=== PATIENT | male | born 1965 | race African-American/Black ===

== ENCOUNTER 2018-05-07 11:04 | Observation (INO) | payer SELFPAY ==
[2018-05-07] MEDS ORDERED: Mag-Al 1200 mg/1200 mg/30 ML UDCUP ONE (11:54)
[2018-05-07] MEDS ORDERED: Lidocaine Viscous Sol 2% 15 ml UD Cup ONE (11:54)
[2018-05-07] MEDS ORDERED: Aspirin Chewable 81 MG TAB ONE (11:54)
[2018-05-07] MEDS ORDERED: hydrALAZINE 20 MG/ML VIAL ONE (11:54)
[2018-05-07] MEDS ORDERED: Morphine 4 MG/ML VIAL ONE (13:35)
[2018-05-07 14:56] LABS: Troponin I 0.011 ng/mL (< 0.028)
[2018-05-07 16:43] VITALS: BMI 33.0
[2018-05-07] MEDS ORDERED: Dextrose 5% in Water 1,000 ML IV PRN (17:37)
[2018-05-07] MEDS ORDERED: Dextrose 50% Abboject 50 ML SYRINGE SLOW IVP PRN (17:37)
[2018-05-07] MEDS ORDERED: Nitroglycerin 0.4 MG TAB (25 Tab Bottle) PO PRN (17:37)
[2018-05-07] MEDS ORDERED: Senokot S 8.6-50 MG TAB PO PRN (17:37)
[2018-05-07] MEDS ORDERED: HumaLOG 300 UNITS/3 ML VIAL SC PRN (17:37)
[2018-05-07] MEDS ORDERED: Ondansetron ODT 4 MG TAB PO PRN (17:37)
[2018-05-07] MEDS ORDERED: Bisacodyl 10 MG SUPP PR PRN (17:37)
[2018-05-07] MEDS ORDERED: HYDROcodone/Acetaminophen 5/325 mg Tablet PO PRN (17:37)
[2018-05-07] MEDS ORDERED: Acetaminophen 325 MG TAB PO PRN (17:37)
[2018-05-07] MEDS ORDERED: Enoxaparin Sodium 40 MG/0.4 ML SYRINGE SC SCH (17:45)
[2018-05-07] MEDS ORDERED: Nicotine 21 MG PATCH TD SCH (18:00)
[2018-05-07 18:42] LABS: Troponin I Less than 0.010 ng/mL (< 0.028)
--- NOTE | 2018-05-07 19:05 | HP ---
CHIEF COMPLAINT: Midsternal chest pain since last night. HISTORY OF PRESENT ILLNESS: The patient is a 52-year-old male with past medical history significant for hypertension and diabetes bed. The patient has been noncompliant on medication, who presents on transfer from [facility] for further evaluation of acute onset of chest pain. The patient reported that he developed chest pain around 8 o'clock yesterday about 3 hours after a meal of tacos. Chest pain is said to be lower midsternal in location and is described as burning with intensity of 8/10 at its maximum severity. There was no associated radiation, diaphoresis, or shortness of breath. The patient, however, admitted to some nausea. He admitted to having some heartburn symptoms previously, but reported that this pain was different. The pain continued until the patient was treated in the emergency room with morphine, GI cocktail, hydralazine as well as nitroglycerin with resolution of symptoms. The patient is currently chest pain free. The patient is supposed to be on metformin but has not taken that for several weeks, the same applies to lisinopril. He also reported smoking about one pack a day for about 25 years. Also, the patient's father had coronary artery disease for which he had bypass surgery. On presentation to the ER, his blood pressure was noted to be 188/104, hence the patient was treated with IV hydralazine with improvement in blood pressure. The patient also reported headache and left ankle pain and swelling. Further evaluation with CT of the brain and left ankle x-ray were nondiagnostic. Initial troponin also was normal, hence the patient was admitted for further evaluation and risk stratification. PAST MEDICAL HISTORY: 1. Hypertension. 2. Diabetes. 3. Tobacco abuse disorder. 4. Recreational drug use. PAST SURGICAL HISTORY: None. FAMILY HISTORY: Significant for diabetes in the mother and coronary artery disease in father. Both parents had hypertension and both at this time. SOCIAL HISTORY: The patient lives alone. He admitted to alcohol, tobacco, and recreational drug use. He said he smokes a pack a day for about 25 years. Drinks about six beers on weekends. ALLERGIES: NO KNOWN DRUG ALLERGIES REPORTED. HOME MEDICATIONS: 1. Lisinopril 20 mg daily. 2. Metformin 500 mg b.i.d. Of note, however, the patient has not been compliant. REVIEW OF SYSTEMS: A 12-point review of system performed was negative other than pertinent positives and negatives included in the history of present illness. PHYSICAL EXAMINATION: VITAL SIGNS: On presentation to the emergency room, the patient had the following vitals; BP 188/104, pulse 57, respiratory rate 20, temperature 98.4, and SpO2 of 99 on room air. Current vitals are at 1627 hours are as follows; blood pressure 149/86, pulse 54, respiratory rate 16, temperature 98.0, and SpO2 of 98% on room air. GENERAL: Well-built male, in no obvious distress. Afebrile, anicteric, acyanotic. HEENT: Normocephalic and atraumatic. Pupils are equal and reacting to light. Oral mucosa is moist. NECK: Supple, nontender, and nondistended with full range of motion. RESPIRATORY: Good air entry bilaterally with no obvious crackle, rhonchi or use of accessory muscles. CARDIOVASCULAR: Regular rhythm and rate with normal heart sounds one and two. GI: Abdomen is full, soft, nontender, nondistended with normal bowel sounds. EXTREMITIES: Mild left ankle swelling and tenderness noted. Otherwise, all extremities are grossly normal and atraumatic with no edema erythema or cyanosis. SKIN: No obvious rash noted. NEUROLOGIC: Conscious and alert, oriented x3 with appropriate mental status. Cranial nerves 2 through 12 are intact. The patient moves all extremities. PSYCHIATRIC: Normal mood. The patient is alert with appropriate mental status and insight. DIAGNOSTIC DATA: CBC showed WBC count of 7.4, hemoglobin of 14.5, MCV of 99.5, and platelet of 176. D-dimer is less than 0.27. CMP showed sodium 138, potassium 4.2, chloride 101, CO2 of 25, BUN 10, creatinine 1.41, glucose 125, calcium 9.8, total bilirubin 1.2, AST 20, ALT 25, alkaline phosphatase 73, total protein 7.0, albumin 4.2. Two sets of troponin 3 hours apart were unremarkable at 0.011. Urinalysis was unremarkable. Urine drug screen, however, was positive for opiates and cocaine. EKG showed sinus bradycardia with rate of 50. There is no obvious ST-segment or T-wave abnormality. Chest x-ray showed clear lungs with no acute pathology. Left ankle x-ray showed degenerative changes without fracture or dislocation. CT scan of the brain showed no acute intracranial abnormality; however, air fluid level is noted in the left maxillary suggestive of acute sinusitis. ASSESSMENT: Atypical chest pain, the etiology is unclear. The patient reported that the chest pain was burning and this was associated with food intake. This seems most likely to be GI related; however, the patient with diabetes and hypertension as well as noncompliance and chronic tobacco abuse, he is at increased risk of coronary artery disease. Uncontrolled hypertension: This was likely due to noncompliance with medication. Uncontrolled type 2 diabetes mellitus: The patient again is noncompliant on metformin. Tobacco abuse disorder. Recreational drug use. Urine drug screen was positive for cocaine and opiates. Possible gastroesophageal reflux disease. PLAN: We will rule out acute myocardial infarction with serial troponin. We will follow up with nuclear stress test if acute UT is ruled out. We will also get a lipid panel in the morning. We will start the patient on sliding scale insulin while holding metformin since cardiac catheterization is a possibility. We will start Pepcid b.i.d. for possible gastroesophageal reflux disease. Analgesic as needed would be provided. Tobacco cessation, education, and counseling were provided. We will also start the patient on nicotine replacement. Diabetic diet will also be started. We will, however, keep the patient n.p.o. from midnight to facilitate stress test in the morning. DVT prophylaxis with Lovenox. We will also check repeat BMP in the morning due to elevated creatinine. This may, however, be baseline for this patient, who is very muscular. Ethics: Full code. Sister is the surrogate decision maker. Job ID: [id number]
[2018-05-07] MEDS: Famotidine 20 MG TAB PO SCH (19:55)
[2018-05-08 05:57] LABS: Anion Gap 9 mmol/L (10-20); BUN (Urea Nitrogen) 11 mg/dL (8.4-25.7); Calc. Creatinine Clearance 118 mL/min (70-130); Calcium 8.8 mg/dL (7.8-10.44); Carbon Dioxide 28 mmol/L (22-29); Chloride 104 mmol/L (98-107); Estimated GFR-MDRD 83; Glucose 95 mg/dL (70-105); Potassium 4.4 mmol/L (3.5-5.1); Sodium 137 mmol/L (136-145)
[2018-05-08 06:49] LABS: #Basophils 0.1 thou/uL (0.0-0.2); #Eosinphils 0.1 thou/uL (0.0-0.7); #Lymphocytes 1.7 thou/uL (1.20-3.40); #Monocytes 0.5 thou/uL (0.11-0.59); #Neutrophils 1.9 thou/uL (1.40-6.50); %Basophils 1.2 % (0.0-1.0); %Eosinophils 2.3 % (0.0-10.0); %Lymphocytes 39.4 % (21.0-51.0); %Monocytes 11.5 % (0.0-10.0); %Neutrophils 45.6 % (42.0-75.0); Hemoglobin 13.8 g/dL (14.0-18.0); Mean Corpuscular HGB CONC 33.1 g/dL (32.0-36.0); Mean Corpuscular Hemoglobin 34.7 pg (27.0-31.0); Mean Platelet Volume 10.3 fL (7.4-10.4); Platelet Count 141 thou/uL (130-400); RBC Distribution Width 12.7 % (11.5-14.5); Red Blood Cell (RBC) Count 3.99 mill/uL (4.70-6.10); White Blood Cell (WBC) Count 4.2 thou/uL (4.8-10.8)
[2018-05-08 06:50] LABS: MDiff Complete? YES; Macrocytosis SLIGHT = 6-15 cells (100X) (0-5/hpf)
[2018-05-08 07:40] LABS: Cardiac Risk 3.6 (Less than 4.5)
[2018-05-08] MEDS ORDERED: Aspirin 325 mg Enteric Coated Tablet PO SCH (09:00)
[2018-05-08] MEDS ORDERED: Enoxaparin Sodium 40 MG/0.4 ML SYRINGE SC SCH (09:00)
[2018-05-08] MEDS ORDERED: Lisinopril 20 MG TAB PO SCH (09:00)
[2018-05-08] MEDS: Famotidine 20 MG TAB PO SCH (11:16)
--- NOTE | 2018-05-08 15:33 | NM ---
RADIONUCLIDE STRESS AND REST MYOCARDIAL PERFUSION SCAN WITH CT ATTENUATION CORRECTION AND SPECT IMAGI NG WITH LEFT VENTRICULAR WALL MOTION EVALUATION AND EJECTION FRACTION: HISTORY: Chest pain. FINDINGS: Edmund protocol. Total test time 10:00. Maximum heart rate 157 BPM. There is homogeneous uptake of radiotracer throughout the left ventricular myocardium. No focal perfu clyde defect or reversibility. Some diaphragmatic attenuation. QGS analysis of gated SPECT images shows no focal wall motion abnormalities. TID equals 1.0. LHR equa ls 33%. Left ventricular ejection fraction is calculated at 54%. IMPRESSION: 1. Normal myocardial perfusion scan, showing no evidence of ischemia. 2. Normal LVEF. POS: [facility]
[2018-05-08 15:54] VITALS: BP 160/89; TEMP 98.2
--- NOTE | 2018-05-08 18:11 | DIS ---
DATE OF ADMISSION: 05/07/2018 DATE OF DISCHARGE: 05/08/2018 PRIMARY CARE PROVIDER: [facility]. DISCHARGE DIAGNOSIS: Chest pain, most likely secondary to musculoskeletal causes. CONDITION OF PATIENT ON THE DAY OF DISCHARGE: Stable. I assessed Mr. Felix on the day of discharge. He denies any chest pain or shortness of breath. Vital signs are stable. S1 and S2 are heard, regular. Lungs are clear to auscultation bilaterally. DISCHARGE MEDICATIONS: 1. Lisinopril 20 mg daily. 2. Metformin 500 mg 2 times a day. 3. Nicotine 21 mg patch daily. HOSPITAL COURSE: Mr. Felix is a pleasant 52-year-old gentleman, who was admitted to [facility] on May 07 2018, for chest pain. Please refer to Dr. Mendoza's history and physical note dated May 07, 2018, for further details. He had a nuclear stress test, which was normal, showing no evidence of ischemia. Left ventricular ejection fraction was 54%. He also had a normal D-dimer of 0.37. His chest pain resolved during this hospitalization, and he is being discharged home in a stable condition. On May 08, he has white count of 4200, hemoglobin 13.8, platelet count 141,000, normal electrolytes and normal creatinine. Fasting lipid profile showed triglycerides 72, cholesterol 140, LDL cholesterol 87, and HDL cholesterol 39. Many thanks for allowing me to participate in your patient's care. Please feel free to contact me with any questions or concerns. DISCHARGE DESTINATION: Home. Job ID: [id number]
--- NOTE | 2018-05-10 13:33 | STRESS ---
Acquisition Time: 2018-05-08 12:58:45 Total Exercise Time: 00:10:00 Test Indications: CHEST PAIN Medications: Protocol: AYANA Max HR: 157 BPM 94% of Pred: 166 BPM Max BP: 170/094 mmHG Max Work Load: 13.4 METS RESTING ECG: SINUS BRADYCARDIA AT 49 BPM SYMPTOMS: DYSPNEA ON EXERTION NORMAL BLOOD PRESSURE RESPONSE ECTOPY: NONE ECG STRESS: NO SIGNIFICANT CHANGES INTERPRETATION: NEGATIVE ECG/AWAIT NUCLEAR IMAGES FOR DEFINITIVE DIAGNOSIS Confirmed by MAIN SIU ([id number]), city editor ENRIQUE CHILDRESS ([id number]) on 05/10/2018 1:32:36 PM Referred By: Aamir WELSH OBI Confirmed By:MAIN SIU
--- NOTE | 2018-05-15 22:15 | EKG ---
Test Reason : Blood Pressure : / mmHG Vent. Rate : 050 BPM Atrial Rate : 050 BPM P-R Int : 162 ms QRS Dur : 088 ms QT Int : 462 ms P-R-T Axes : 059 -37 037 degrees QTc Int : 421 ms Sinus bradycardia Left axis deviation Abnormal ECG Confirmed by EDWIN WELSH, CHAYITO ([id number]), supervising film or videotape editor JAMAL BRADLEY ([id number]) on 05/15/2018 10:15:00 PM Referred By: Confirmed By:CHAYITO PINEDA MD
== END 2018-05-08 18:13 | disposition home or self-care (01) ==
LOC: ERS 11:04 → ERHOLD 12:41 → 2SW 16:39
PROVIDERS: ADMIT Internal Medicine Nephrology; ATTEND Internal Medicine Nephrology
DX: R07.9 Chest pain, unspecified (principal); I10 Essential (primary) hypertension; E11.9 Type 2 diabetes mellitus without complications; F17.210 Nicotine dependence, cigarettes, uncomplicated; Z79.84 Long term (current) use of oral hypoglycemic drugs; Z79.899 Other long term (current) drug therapy; Z91.14 Patient's other noncompliance with medication regimen
CPT/HCPCS: 36415; 36416; 78452; 80048; 80061; 85025; 85379; 93005; 93017; 96372; A9500; G0378; J0360; J1650; J2270

== ENCOUNTER 2019-04-26 12:05 | Emergency (ER) | payer SELFPAY ==
[2019-04-26] MEDS ORDERED: Ketorolac Tromethamine 60 MG/2 ML VIAL ONE (13:05)
== END 2019-04-26 13:15 | disposition home or self-care (01) ==
LOC: ERS 12:05
DX: M54.5 Low back pain (principal); E11.9 Type 2 diabetes mellitus without complications; I10 Essential (primary) hypertension; F17.210 Nicotine dependence, cigarettes, uncomplicated; Z79.84 Long term (current) use of oral hypoglycemic drugs; Z79.899 Other long term (current) drug therapy
CPT/HCPCS: 96372; 99283; J1885

== ENCOUNTER 2019-06-14 13:50 | Emergency (ER) | payer SELFPAY | END 2019-06-14 14:24 | disposition home or self-care (01) | LOC: ERS 13:50 | DX: R19.7 Diarrhea, unspecified (principal); E11.9 Type 2 diabetes mellitus without complications; I10 Essential (primary) hypertension; F17.210 Nicotine dependence, cigarettes, uncomplicated; Z79.84 Long term (current) use of oral hypoglycemic drugs; Z79.899 Other long term (current) drug therapy | CPT/HCPCS: 99283 ==

== ENCOUNTER 2019-07-02 12:59 | Emergency (ER) | payer SELFPAY ==
[2019-07-02] MEDS ORDERED: Ketorolac Tromethamine 30 MG/ML VIAL ONE (13:58)
== END 2019-07-02 14:15 | disposition home or self-care (01) ==
LOC: ERS 12:59
DX: S39.012A Strain of muscle, fascia and tendon of lower back, initial encounter (principal); E11.9 Type 2 diabetes mellitus without complications; I10 Essential (primary) hypertension; F17.210 Nicotine dependence, cigarettes, uncomplicated; Z79.899 Other long term (current) drug therapy; Z79.84 Long term (current) use of oral hypoglycemic drugs; X50.0XXA Overexertion from strenuous movement or load, initial encounter
CPT/HCPCS: 96372; 99283; J1885

== ENCOUNTER 2019-07-12 10:30 | Emergency (ER) | payer OTHER, SELFPAY ==
[2019-07-12 17:21] LABS: SARS-CoV-2 MS2 Positive; SARS-CoV-2 N Gene Negative; SARS-CoV-2 S Gene Negative; SARS-CoV-2 orf1ab Negative
== END 2019-07-12 15:34 | disposition home or self-care (01) ==
LOC: ERS 10:30
DX: B34.9 Viral infection, unspecified (principal); E11.9 Type 2 diabetes mellitus without complications; I10 Essential (primary) hypertension; F17.210 Nicotine dependence, cigarettes, uncomplicated; Z79.84 Long term (current) use of oral hypoglycemic drugs; Z79.899 Other long term (current) drug therapy
CPT/HCPCS: 87081; 87430; 87635; 99283; U0003

== ENCOUNTER 2019-07-25 10:38 | Emergency (ER) | payer SELFPAY ==
[2019-07-25] MEDS ORDERED: Proparacaine 0.5% Opth 15 ML BOT ONE (12:21)
[2019-07-25 13:32] LABS: Anion Gap 12 mmol/L (10-20); BUN (Urea Nitrogen) 20 mg/dL (8.4-25.7); Calc. Creatinine Clearance 0 mL/min (70-130); Calcium 8.9 mg/dL (7.8-10.44); Carbon Dioxide 24 mmol/L (22-29); Chloride 105 mmol/L (98-107); Estimated GFR-MDRD 73; Glucose 115 mg/dL (70-105); Potassium 4.1 mmol/L (3.5-5.1); Sodium 137 mmol/L (136-145)
== END 2019-07-25 13:55 | disposition home or self-care (01) ==
LOC: ERS 10:38
DX: H10.9 Unspecified conjunctivitis (principal); E11.9 Type 2 diabetes mellitus without complications; I10 Essential (primary) hypertension; F17.210 Nicotine dependence, cigarettes, uncomplicated; Z79.899 Other long term (current) drug therapy
CPT/HCPCS: 36415; 80048; 99284

== ENCOUNTER 2019-08-18 10:27 | Emergency (ER) | payer SELFPAY ==
[2019-08-18] MEDS ORDERED: Ketorolac Tromethamine 30 MG/ML VIAL ONE (11:39)
--- NOTE | 2019-08-18 13:40 | RAD ---
EXAM: LEFT SHOULDER THREE VIEWS: 08/18/19 HISTORY: Left shoulder pain. No chest pain. FINDINGS: AC and glenohumeral joint arthrosis. No acute fracture or dislocation. IMPRESSION: Mild osteoarthrosis and degenerative change without acute fracture or dislocation. POS: [facility]
== END 2019-08-18 11:45 | disposition home or self-care (01) ==
LOC: ERS 10:27
DX: M25.512 Pain in left shoulder (principal); E11.9 Type 2 diabetes mellitus without complications; I10 Essential (primary) hypertension; F17.210 Nicotine dependence, cigarettes, uncomplicated; Z79.899 Other long term (current) drug therapy
CPT/HCPCS: 96372; J1885

== ENCOUNTER 2019-09-12 10:27 | Emergency (ER) | payer OTHER, SELFPAY ==
[2019-09-12] MEDS ORDERED: Meclizine HCl 25 MG TAB ONE (11:10)
[2019-09-12] MEDS ORDERED: diphenhydrAMINE 50 MG/ML VIAL ONE (11:10)
[2019-09-12] MEDS ORDERED: Metoclopramide HCl 10 MG/2 ML VIAL ONE (11:10)
[2019-09-12] MEDS ORDERED: Dexamethasone 10 MG/ML VIAL ONE (11:10)
--- NOTE | 2019-09-12 11:16 | CT ---
CT HEAD WITHOUT IV CONTRAST COMPARISON: 05/07/2018 HISTORY: Altered mental status and nausea TECHNIQUE: Axial CT imaging at 5 mm intervals from vertex through skull base without contrast FINDINGS: There is no evidence of an acute infarction, hemorrhage, mass effect, or midline shift. The ventricul ar system is normal in size, shape, and position. There is opacification of a single posterior right ethmoidal air cell. Remaining visualized paranasal sinuses as well as mastoid air cells are clear. Osseous structures appear intact. CT head is stable compared to prior exam. IMPRESSION: 1. No acute intracranial abnormality demonstrated.
[2019-09-12 11:53] LABS: #Eosinphils 0.1 thou/uL (0.0-0.7); #Lymphocytes 1.3 thou/uL (1.20-3.40); #Monocytes 0.5 thou/uL (0.11-0.59); #Neutrophils 2.9 thou/uL (1.40-6.50); %Basophils 0.7 % (0.0-1.0); %Lymphocytes 27.5 % (21.0-51.0); %Monocytes 10.4 % (0.0-10.0); %Neutrophils 59.3 % (42.0-75.0); Hemoglobin 15.2 g/dL (14.0-18.0); Mean Corpuscular HGB CONC 34.2 g/dL (32.0-36.0); Mean Corpuscular Hemoglobin 34.3 pg (27.0-31.0); Mean Platelet Volume 10.7 fL (7.4-10.4); Platelet Count 145 thou/uL (130-400); RBC Distribution Width 12.6 % (11.5-14.5); Red Blood Cell (RBC) Count 4.43 mill/uL (4.70-6.10); White Blood Cell (WBC) Count 4.9 thou/uL (4.8-10.8)
[2019-09-12 12:05] LABS: ALT (SGPT) 33 U/L (8-55); AST (SGOT) 17 U/L (5-34); Albumin 3.5 g/dL (3.5-5.0); Alkaline Phosphatase 58 U/L (40-110); Anion Gap 9 mmol/L (10-20); BUN (Urea Nitrogen) 17 mg/dL (8.4-25.7); Bilirubin, Total 0.4 mg/dL (0.2-1.2); CK (CPK) 155 U/L (30-200); Calc. Creatinine Clearance 0 mL/min (70-130); Calcium 8.5 mg/dL (7.8-10.44); Carbon Dioxide 27 mmol/L (22-29); Chloride 106 mmol/L (98-107); Estimated GFR-MDRD 71; Globulin 2.2 g/dL (2.4-3.5); Glucose 161 mg/dL (70-105); Potassium 4.1 mmol/L (3.5-5.1); Protein, Total 5.7 g/dL (6.0-8.3); Sodium 138 mmol/L (136-145)
== END 2019-09-12 12:41 | disposition home or self-care (01) ==
LOC: ERS 10:27
DX: R42 Dizziness and giddiness (principal); E11.9 Type 2 diabetes mellitus without complications; I10 Essential (primary) hypertension; F17.210 Nicotine dependence, cigarettes, uncomplicated; Z79.899 Other long term (current) drug therapy
CPT/HCPCS: 70450; 80053; 82550; 85025; 93005; 94760; 96365; 96375; J1100; J1200; J2765

== ENCOUNTER 2020-01-17 17:48 | Emergency (ER) | payer BC | END 2020-01-17 21:18 | disposition left against medical advice (07) | LOC: ERS 17:48 | DX: Z53.21 Procedure and treatment not carried out due to patient leaving prior to being seen by health care provider (principal) ==

== ENCOUNTER 2020-10-16 09:55 | Emergency (ER) | payer OTHER, SELFPAY ==
[2020-10-16 11:00] LABS: Bilirubin Negative (Negative); Blood, Urine Negative (Negative); Clarity Clear (Clear); Glucose, Urine (Dipstick) Greater than 1000 mg/dL (Negative); Ketone, Urine Negative (Negative); Leukocyte Negative Leu/uL (Negative); Nitrite Negative (Negative); Protein, Urine (Dipstick) Negative (Neg-Trace); Specific Gravity, Urine 1.027 (1.002-1.036); Urobilinogen Normal mg/dL (Less than 2)
[2020-10-16 11:55] LABS: #Eosinphils 0.1 thou/uL (0.0-0.7); #Lymphocytes 1.5 thou/uL (1.20-3.40); #Monocytes 0.7 thou/uL (0.11-0.59); #Neutrophils 4.6 thou/uL (1.40-6.50); %Basophils 0.3 % (0.0-1.0); %Eosinophils 1.7 % (0.0-10.0); %Lymphocytes 21.9 % (21.0-51.0); %Monocytes 9.6 % (0.0-10.0); %Neutrophils 66.6 % (42.0-75.0); Hemoglobin 14.5 g/dL (14.0-18.0); Mean Corpuscular HGB CONC 34.1 g/dL (32.0-36.0); Mean Corpuscular Hemoglobin 34.1 pg (27.0-31.0); Mean Platelet Volume 10.5 fL (7.4-10.4); Platelet Count 144 thou/uL (130-400); RBC Distribution Width 12.7 % (11.5-14.5); Red Blood Cell (RBC) Count 4.24 mill/uL (4.70-6.10); White Blood Cell (WBC) Count 6.9 thou/uL (4.8-10.8)
[2020-10-16 12:20] LABS: ALT (SGPT) 37 U/L (8-55); AST (SGOT) 17 U/L (5-34); Albumin 3.1 g/dL (3.5-5.0); Alkaline Phosphatase 61 U/L (40-110); Anion Gap 6 mmol/L (10-20); BUN (Urea Nitrogen) 16 mg/dL (8.4-25.7); Bilirubin, Total 0.3 mg/dL (0.2-1.2); Calc. Creatinine Clearance 0 mL/min (70-130); Calcium 8.2 mg/dL (7.8-10.44); Carbon Dioxide 29 mmol/L (22-29); Chloride 101 mmol/L (98-107); Globulin 2.3 g/dL (2.4-3.5); Glucose 328 mg/dL (70-105); Potassium 4.2 mmol/L (3.5-5.1); Protein, Total 5.4 g/dL (6.0-8.3); Sodium 132 mmol/L (136-145)
[2020-10-16] MEDS ORDERED: Insulin Regular 300 UNITS/3 ML VIAL ONE (13:35)
== END 2020-10-16 14:46 | disposition home or self-care (01) ==
LOC: ERS 09:55
DX: E11.65 Type 2 diabetes mellitus with hyperglycemia (principal); I10 Essential (primary) hypertension; F17.210 Nicotine dependence, cigarettes, uncomplicated
CPT/HCPCS: 36415; 36416; 80053; 81003; 85025; 96374; J1815

== ENCOUNTER 2021-03-08 18:22 | Emergency (ER) | payer OTHER ==
[2021-03-09 16:07] LABS: SARS-CoV-2 PCR by NAA Not Detected (NotDetected)
== END 2021-03-08 21:15 | disposition home or self-care (01) ==
LOC: ERS 18:22
DX: J06.9 Acute upper respiratory infection, unspecified (principal); Z20.822 Contact with and (suspected) exposure to COVID-19; I10 Essential (primary) hypertension; E11.9 Type 2 diabetes mellitus without complications; F17.210 Nicotine dependence, cigarettes, uncomplicated; Z79.84 Long term (current) use of oral hypoglycemic drugs; Z79.899 Other long term (current) drug therapy
CPT/HCPCS: 36416; 71045; U0003; U0005

== ENCOUNTER 2021-03-10 19:17 | Emergency (ER) | payer OTHER | END 2021-03-10 21:16 | disposition home or self-care (01) | LOC: ERS 19:17 | DX: R05.9 Cough, unspecified (principal); Z20.822 Contact with and (suspected) exposure to COVID-19; E11.9 Type 2 diabetes mellitus without complications; I10 Essential (primary) hypertension; G47.30 Sleep apnea, unspecified; F17.210 Nicotine dependence, cigarettes, uncomplicated | CPT/HCPCS: 99283 ==

== ENCOUNTER 2021-07-19 13:17 | Emergency (ER) | payer OTHER, SELFPAY | END 2021-07-19 15:09 | disposition home or self-care (01) | LOC: ERS 13:17 | DX: E11.40 Type 2 diabetes mellitus with diabetic neuropathy, unspecified (principal); M79.604 Pain in right leg; I10 Essential (primary) hypertension; G47.30 Sleep apnea, unspecified; F17.210 Nicotine dependence, cigarettes, uncomplicated | CPT/HCPCS: 99283 ==

== ENCOUNTER 2023-09-25 05:23 | Emergency (ER) | payer BC, SELFPAY ==
[2023-09-25 07:45] LABS: ALT (SGPT) 22 U/L (8-55); AST (SGOT) 15 U/L (5-34); Albumin 2.7 g/dL (3.5-5.0); Alkaline Phosphatase 74 U/L (40-110); Anion Gap 14 mmol/L (10-20); BUN (Urea Nitrogen) 12 mg/dL (8.4-25.7); Bilirubin, Total 0.2 mg/dL (0.2-1.2); Calc. Creatinine Clearance 0 mL/min (70-130); Carbon Dioxide 26 mmol/L (22-29); Chloride 100 mmol/L (98-107); Estimated GFR 85; Globulin 3.6 g/dL (2.4-3.5); Glucose 313 mg/dL (70-105); Potassium 4.1 mmol/L (3.5-5.1); Protein, Total 6.3 g/dL (6.0-8.3); Sodium 136 mmol/L (136-145)
[2023-09-25 07:50] LABS: Hemoglobin 14.2 g/dL (14.0-18.0); Mean Corpuscular Volume 97.6 fL (78.0-98.0); White Blood Cell (WBC) Count 10.92 10x3/uL (4.8-10.8)
[2023-09-25 07:51] LABS: #Neutrophils 7.78 10x3/uL (1.40-6.50); %Basophils 0.5 % (0.0-1.0); %Eosinophils 0.8 % (0.0-10.0); %Lymphocytes 14.7 % (21.0-51.0); %Monocytes 11.4 % (0.0-10.0); %Neutrophils 71.2 % (42.0-75.0); Mean Corpuscular HGB CONC 34.6 g/dL (32.0-36.0); Mean Corpuscular Hemoglobin 33.8 pg (27.0-31.0); Mean Platelet Volume 11.5 fL (7.4-10.4); Platelet Count 285 10x3/uL (130-400); RBC Distribution Width 12.7 % (11.5-14.5)
[2023-09-25 07:52] LABS: #Basophils 0.05 10x3/uL (0.0-0.2); #Eosinphils 0.09 10x3/uL (0.0-0.7); #Monocytes 1.24 10x3/uL (0.11-0.59)
[2023-09-25 07:53] LABS: Manual Diff?? NO
[2023-09-25 07:55] LABS: PTT 31.5 sec (22.9-36.1); Prothrombin Time 13.1 sec (12.0-14.7)
== END 2023-09-25 12:30 | disposition short-term general hospital (02) ==
LOC: ERS 05:23
DX: I77.1 Stricture of artery (principal); E11.9 Type 2 diabetes mellitus without complications; I10 Essential (primary) hypertension; F17.210 Nicotine dependence, cigarettes, uncomplicated
CPT/HCPCS: 75635; 80053; 85025; 85610; 85730; 96374; 96376; J2270; Q9967